=== PATIENT | female | born 1945 | race Caucasian/White ===

== ENCOUNTER 2017-11-04 13:40 | Emergency (ER) | payer MEDICARE, OTHER ==
[~2017-11-04] VITALS: Ht 167.6 cm; Wt 54.4 kg
[2017-11-04] MEDS ORDERED: VALIUM (13:49)
[2017-11-04 16:48] LABS: BASOPHILS % (AUTO) 0.5 % (0.0-2.0); EOSINOPHILS % (AUTO) 0.1 % (0.0-7.0); HEMATOCRIT 41.1 % (31.2-41.9); HEMOGLOBIN 14.4 g/dL (10.9-14.3); LYMPHOCYTES # (AUTO) 1.9 K/uL (20.0-40.0); LYMPHOCYTES % (AUTO) 20.1 % (20.5-51.5); MEAN CORPUSCULAR HEMOGLOBIN 30.9 uug (24.7-32.8); MEAN CORPUSCULAR HGB CONC 35 g/dL (32.3-35.6); MEAN CORPUSCULAR VOLUME 88.5 fL (75.5-95.3); MONOCYTES # (AUTO) 0.5 K/uL (2.0-10.0); MONOCYTES % (AUTO) 5.6 % (0.0-11.0); NEUTROPHILS # (AUTO) 7.1 K/uL (1.8-8.9); NEUTROPHILS % (AUTO) 73.7 % (38.5-71.5); PLATELET COUNT (AUTO) 252 K/uL (179-408); RED BLOOD CELL COUNT(AUTO) 4.64 MIL/uL (3.63-4.92); WHITE BLOOD COUNT (AUTO) 9.6 K/uL (3.8-11.8)
[2017-11-04 16:54] LABS: CARBON DIOXIDE 28 mmol/L (21-32); CHLORIDE 105 mmol/L (98-107); CREATININE 0.8 mg/dL (0.6-1.3); GLUCOSE 102 mg/dL (74-106); POTASSIUM 4.6 mmol/L (3.5-5.1); UREA NITROGEN, BLOOD 9 mg/dL (7-18)
[2017-11-04 17:04] LABS: ALANINE AMINOTRANSFERASE 26 U/L (14-59); ALKALINE PHOSPHATASE 71 U/L (50-136); ASPARTATE AMINOTRANSFERASE 22 U/L (15-37); BILIRUBIN,DIRECT 0.1 mg/dL (0.0-0.2); BILIRUBIN,TOTAL 0.3 mg/dL (0.2-1.0); TOTAL PROTEIN, SERUM 7.1 g/dL (6.4-8.2)
--- NOTE | 2017-11-04 17:18 | NUR ---
pt is resting in bed, watching tv. no acute distress noted.
[2017-11-04 17:24] LABS: THYROID STIMULATING HORMONE 1.916 mIU/mL (0.358-3.740)
[2017-11-04 17:36] VITALS: BP 150/60
--- NOTE | 2017-11-04 17:36 | NUR ---
Patient discharged to home in stable conditon. Written and verbal after care instructions given. Patient verbalizes understanding of instructions.
== END 2017-11-04 17:44 | disposition home or self-care (01) ==
LOC: ER 13:40
DX: F41.9 Anxiety disorder, unspecified (principal)
CPT/HCPCS: 36415; 70450; 71010; 80048; 80076; 84439; 84443; 84479; 84484; 85025; 85730; 93005; 99285; A4663; 70030-TC

== ENCOUNTER 2018-01-23 10:57 | Emergency (ER) | payer MEDICARE, OTHER ==
[~2018-01-23] VITALS: Ht 160 cm; Wt 65.8 kg
[~2018-01-23 10:57] MED LIST: VALIUM
[2018-01-23] MEDS ORDERED: LEVO500T2 PO (11:12)
[2018-01-23] MEDS ORDERED: GUAI5LIQ PO (11:12)
[2018-01-23] MEDS ORDERED: ALPR0.25 PO (11:12)
[2018-01-23 11:40] LABS: HEMATOCRIT 42.1 % (31.2-41.9); HEMOGLOBIN 14.6 g/dL (10.9-14.3); MEAN CORPUSCULAR HEMOGLOBIN 29.8 uug (24.7-32.8); WHITE BLOOD COUNT (AUTO) 8.9 K/uL (3.8-11.8)
[2018-01-23 11:41] LABS: BASOPHILS % (AUTO) 0.3 % (0.0-2.0); EOSINOPHILS % (AUTO) 0.1 % (0.0-7.0); LYMPHOCYTES # (AUTO) 1.5 K/uL (20.0-40.0); LYMPHOCYTES % (AUTO) 16.9 % (20.5-51.5); MEAN CORPUSCULAR HGB CONC 35 g/dL (32.3-35.6); MONOCYTES # (AUTO) 0.8 K/uL (2.0-10.0); MONOCYTES % (AUTO) 8.6 % (0.0-11.0); NEUTROPHILS # (AUTO) 6.6 K/uL (1.8-8.9); NEUTROPHILS % (AUTO) 74.1 % (38.5-71.5); PLATELET COUNT (AUTO) 304 K/uL (179-408)
[2018-01-23 11:51] LABS: CARBON DIOXIDE 26 mmol/L (21-32); CHLORIDE 97 mmol/L (98-107); CREATININE 0.8 mg/dL (0.6-1.3); GLUCOSE 145 mg/dL (74-106); POTASSIUM 4.2 mmol/L (3.5-5.1); UREA NITROGEN, BLOOD 8 mg/dL (7-18)
[2018-01-23 11:56] LABS: ALANINE AMINOTRANSFERASE 29 U/L (14-59); ALKALINE PHOSPHATASE 62 U/L (50-136); ASPARTATE AMINOTRANSFERASE 16 U/L (15-37); BILIRUBIN,TOTAL 0.4 mg/dL (0.2-1.0); TOTAL PROTEIN, SERUM 7.1 g/dL (6.4-8.2)
[2018-01-23] MEDS ORDERED: ALPRAZOLAM 0.25 MG TABLET PO ONE (12:15)
[2018-01-23] MEDS ORDERED: ALPRAZOLAM 0.5 MG TABLET ONE (12:19)
--- NOTE | 2018-01-23 12:22 | NUR ---
Patient discharged to home in stable conditon with family. Written and verbal after care instructions given. Patient verbalizes understanding of instructions.
== END 2018-01-23 12:23 | disposition home or self-care (01) ==
LOC: ER 10:59
DX: F41.9 Anxiety disorder, unspecified (principal); Z79.2 Long term (current) use of antibiotics; Z79.899 Other long term (current) drug therapy
CPT/HCPCS: 36415; 71045; 85025; A4663

== ENCOUNTER 2020-06-20 10:25 | Inpatient (IN) | payer MEDICARE, OTHER ==
[~2020-06-20] VITALS: Ht 167.6 cm; Wt 64.0 kg
[~2020-06-20 10:25] MED LIST changes: +ALPR0.25 PO; +GUAI5LIQ PO; +LEVO500T2 PO
[2020-06-20 10:52] LABS: BASOPHILS % (AUTO) 0.1 % (0.0-2.0); HEMOGLOBIN 11.4 g/dL (10.9-14.3); LYMPHOCYTES # (AUTO) 1.3 K/uL (20.0-40.0); LYMPHOCYTES % (AUTO) 10.6 % (20.5-51.5); MEAN CORPUSCULAR HEMOGLOBIN 29.6 uug (24.7-32.8); MEAN CORPUSCULAR HGB CONC 36 g/dL (32.3-35.6); MEAN CORPUSCULAR VOLUME 82.8 fL (75.5-95.3); MONOCYTES # (AUTO) 0.9 K/uL (2.0-10.0); MONOCYTES % (AUTO) 7.4 % (0.0-11.0); NEUTROPHILS # (AUTO) 10.4 K/uL (1.8-8.9); NEUTROPHILS % (AUTO) 81.9 % (38.5-71.5); PLATELET COUNT (AUTO) 224 K/uL (179-408); RED BLOOD CELL COUNT(AUTO) 3.86 MIL/uL (3.63-4.92); WHITE BLOOD COUNT (AUTO) 12.7 K/uL (3.8-11.8)
--- NOTE | 2020-06-20 10:52 | NUR ---
Pt out of ER for CT.
--- NOTE | 2020-06-20 11:01 | NUR ---
Pt back from Ct, states no longer nauseous. Able to tolorate PO intake.
[2020-06-20 11:03] LABS: CREATININE 0.6 mg/dL (0.6-1.3); POTASSIUM 3.7 mmol/L (3.5-5.1)
[2020-06-20] MEDS ORDERED: IV NORMAL SALINE 1000 ML BAG IV ONE (11:15)
[2020-06-20] MEDS ORDERED: OMEP40CA13 PO (11:19)
[2020-06-20] MEDS ORDERED: SERT50TA PO (11:19)
[2020-06-20] MEDS ORDERED: SUMA100T16 PO (11:19)
--- NOTE | 2020-06-20 11:23 | NUR ---
Paged [facility] for admission.
[2020-06-20] MEDS ORDERED: IV NS 1000 ML 1,000 ML IV PRN ×2 (11:35→17:45)
[2020-06-20] MEDS ORDERED: ONDANSETRON 4 MG/2 ML VIAL IV PRN (11:45)
[2020-06-20] MEDS ORDERED: MAGNESIUM HYDROXIDE 30 ML LIQUID UDC PO PRN (11:45)
[2020-06-20] MEDS ORDERED: Z GUARD REMEDY PASTE 57 GM TUBE TOP PRN (11:45)
--- NOTE | 2020-06-20 12:30 | NUR ---
Pt arrived in RM [address] via wheelchair, AOx3, on RA with no SOB or distress at this time. Have to repeat instructions and commands multiple times. On Tele SR,denied chest pain. Notice tremors/ shakiness and asked pt the onset and cause and she stated she's not sure and it started 2 weeks ago probably. Pt seemed anxious. Ambulates to the bathroom but had to repeatedly reorient to use call light. Bed alarm on. Reoriented to room and unit policy, verbalized understanding, reinforcement needed. Bed locked in lowest position with siderails 2x up. call light and phone with reach. Will monitor
[2020-06-20 13:00] VITALS: BP 124/46
[2020-06-20 16:00] VITALS: BP 130/45
[2020-06-20] MEDS: ACETAMINOPHEN 325 MG TABLET PO PRN (16:07)
[2020-06-20 17:00] LABS: CREATININE 0.8 mg/dL (0.6-1.3); POTASSIUM 3.7 mmol/L (3.5-5.1)
[2020-06-20] MEDS ORDERED: FUROSEMIDE 40 MG/4 ML VIAL IV ONE (18:30)
[2020-06-20 20:16] VITALS: BP 122/71
[2020-06-20] MEDS ORDERED: LORAZEPAM 2 MG/1 ML VIAL IV ONE (20:45)
--- NOTE | 2020-06-20 21:28 | NUR ---
john lu np contacted for patients ripping out her IV, getting of of bed, arguing with staff, walking up and down the halls, and anxious. new orders for Ativan 1mg x1 IVP to administer now.
[2020-06-20] MEDS ORDERED: IV SODIUM CHLORIDE 3% 500 ML IV PRN (22:00)
[2020-06-20 22:22] LABS: BASOPHILS % (AUTO) 0.1 % (0.0-2.0); HEMOGLOBIN 10.9 g/dL (10.9-14.3); LYMPHOCYTES # (AUTO) 1.4 K/uL (20.0-40.0); LYMPHOCYTES % (AUTO) 10.4 % (20.5-51.5); MEAN CORPUSCULAR HEMOGLOBIN 29.2 uug (24.7-32.8); MEAN CORPUSCULAR HGB CONC 35 g/dL (32.3-35.6); MEAN CORPUSCULAR VOLUME 82.9 fL (75.5-95.3); MONOCYTES # (AUTO) 1.3 K/uL (2.0-10.0); MONOCYTES % (AUTO) 10.2 % (0.0-11.0); NEUTROPHILS # (AUTO) 10.4 K/uL (1.8-8.9); NEUTROPHILS % (AUTO) 79.3 % (38.5-71.5); PLATELET COUNT (AUTO) 184 K/uL (179-408); RED BLOOD CELL COUNT(AUTO) 3.73 MIL/uL (3.63-4.92); WHITE BLOOD COUNT (AUTO) 13.2 K/uL (3.8-11.8)
[2020-06-20 22:24] LABS: CREATININE 0.8 mg/dL (0.6-1.3)
--- NOTE | 2020-06-20 22:25 | NUR ---
Received patient from 3rd floor telemetry. Was brought in earlier to the ER by rescue ambulance for complaints of worsening frontal headache. Was found to have hyponatremia and leukocytosis, admitted up to the 3rd floor telemetry. While up there, the patient apparently became delusional and became slightly bradycardic at 58, however patient's current alert level consistent with their admission assessment. Patient is otherwise hemodynamically stable. Orders to begin 3% hypertonic saline infusion @30mL/Hr.
[2020-06-20 22:30] VITALS: BP 122/41
[2020-06-20] MEDS ORDERED: CEFTRIAXONE 1 G VIAL IM SCH (22:30)
--- NOTE | 2020-06-20 22:38 | NUR ---
patient transferred to CCU, report given to Brandon. patient in bed 4. IVP intact and patent. orders given from john lu np for BMP and CBC stat. urinalysis collected and will be sent to lab. sinus bradycardia on tele monitor at 52bpm. x1 episode of n/v. zofran administered. v/s stable. no s/s of acute distress. on RA.
[2020-06-20] MEDS ORDERED: CEFTRIAXONE 1 G VIAL ONE (22:48)
[2020-06-20 23:00] VITALS: BP 132/43
[2020-06-20] MEDS ORDERED: IV SODIUM CHLORIDE 3% 500 ML IV ONE (23:15)
[2020-06-20] MEDS: CEFTRIAXONE 1 G in IV DEXTROSE 5% 50 ML IV SCH (23:21)
[2020-06-21] VITALS (24 sets, daily range): BP systolic 52–155; BP diastolic 21–92
--- NOTE | 2020-06-21 | NUR ---
Patient is very non-compliant with instructions, frequently attempting to get out of bed. Patient required extensive reorientation to where she is and to use call light.
[2020-06-21 02:21] LABS: CREATININE 0.8 mg/dL (0.6-1.3); POTASSIUM 2.9 mmol/L (3.5-5.1)
--- NOTE | 2020-06-21 02:40 | NUR ---
Sodium remains critical @114 up from 113. Spoke with Ajit Palma NP to inform him of minimal change to the patient's sodium level. He ordered the 3% saline infusion be increased to 50mL/Hr. Order carried out.
[2020-06-21 06:16] LABS: EOSINOPHILS % (AUTO) 0.1 % (0.0-7.0); HEMATOCRIT 31.3 % (31.2-41.9); HEMOGLOBIN 11.3 g/dL (10.9-14.3); LYMPHOCYTES # (AUTO) 1.3 K/uL (20.0-40.0); LYMPHOCYTES % (AUTO) 12.9 % (20.5-51.5); MEAN CORPUSCULAR HGB CONC 36 g/dL (32.3-35.6); MEAN CORPUSCULAR VOLUME 82.6 fL (75.5-95.3); MONOCYTES # (AUTO) 1.1 K/uL (2.0-10.0); MONOCYTES % (AUTO) 10.4 % (0.0-11.0); NEUTROPHILS % (AUTO) 76.6 % (38.5-71.5); PLATELET COUNT (AUTO) 187 K/uL (179-408); RED BLOOD CELL COUNT(AUTO) 3.78 MIL/uL (3.63-4.92); WHITE BLOOD COUNT (AUTO) 10.4 K/uL (3.8-11.8)
--- NOTE | 2020-06-21 06:30 | NUR ---
PT. IV PULLED OUT, RESTARTED IV ON LFA W/ # 20 GAUGE.
[2020-06-21 06:35] LABS: BILIRUBIN,TOTAL 0.6 mg/dL (0.2-1.0); CREATININE 0.7 mg/dL (0.6-1.3); MAGNESIUM 1.7 mg/dL (1.8-2.4); PHOSPHOROUS 2.8 mg/dL (2.5-4.9); TOTAL PROTEIN, SERUM 5.6 g/dL (6.4-8.2)
[2020-06-21 06:45] LABS: POTASSIUM 2.8 mmol/L (3.5-5.1)
[2020-06-21] MEDS ORDERED: POTASSIUM CHLORIDE 20 MEQ POWDER PACKET PO ONE (07:30)
--- NOTE | 2020-06-21 07:35 | NUR ---
Dr. Robert here to see pt. New orders received.
[2020-06-21] MEDS: SERTRALINE HCL 50 MG TABLET PO SCH (08:09)
[2020-06-21] MEDS: PANTOPRAZOLE SODIUM 40 MG TABLET.DR PO SCH (08:09)
[2020-06-21] MEDS: MAGNESIUM SULFATE/D5W 100 ML IV SCH ×2 (08:10→09:12)
[2020-06-21] MEDS ORDERED: FUROSEMIDE 20 MG TABLET PO SCH (09:00)
[2020-06-21 09:28] LABS: THYROID STIMULATING HORMONE 1.807 mIU/mL (0.358-3.740)
[2020-06-21] MEDS: POTASSIUM CHLORIDE 50 ML IV SCH ×4 (10:11→14:18)
--- NOTE | 2020-06-21 11:44 | NUR ---
US tech here to see pt for 2D Echocardiogram.
[2020-06-21 16:29] LABS: *BILIRUBIN,URIN NEGATIVE (NEGATIVE); *KETONES,URINE NEGATIVE (NEGATIVE); *UROBILINOGEN,URINE 0.2 E.U./dl (NORMAL); LEUKOCYTE ESTERASE ,URINE 1+ (NEGATIVE); NITRITE, URINE NEGATIVE (NEGATIVE); UGLUCOSE NEGATIVE (NEGATIVE)
[2020-06-21 16:36] LABS: *BLOOD, URINE TRACE (NEGATIVE); *CLARITY,URINE HAZY (CLEAR); *COLOR,URINE LIGHT YELLOW (YELLOW)
[2020-06-21 18:48] LABS: BACTERIA,URINE MODERATE /HPF (NONE SEEN); RBC,URINE 0-3 /HPF (0-3); SQUAMOUS EPITHELIAL CELL,UR FEW /HPF (NONE SEEN)
--- NOTE | 2020-06-21 19:10 | NUR ---
Received patient sleeping in bed. Patient's vital signs all WNL, no signs of distress noted.
[2020-06-21] MEDS: CEFTRIAXONE 1 G in IV DEXTROSE 5% 50 ML IV SCH (23:09)
[2020-06-22] VITALS (15 sets, daily range): BP systolic 85–148; BP diastolic 27–110
[2020-06-22 05:24] LABS: CREATININE 0.7 mg/dL (0.6-1.3); MAGNESIUM 2.2 mg/dL (1.8-2.4); URIC ACID 1.7 mg/dL (2.6-6.0)
[2020-06-22 05:32] LABS: THYROID STIMULATING HORMONE 1.167 mIU/mL (0.358-3.740)
[2020-06-22] MEDS: PANTOPRAZOLE SODIUM 40 MG TABLET.DR PO SCH (06:50)
[2020-06-22] MEDS ORDERED: POTASSIUM CHLORIDE 20 MEQ TAB.PRT.SR PO ONE (07:30)
[2020-06-22] MEDS: SERTRALINE HCL 50 MG TABLET PO SCH ×2 (08:01→08:05)
[2020-06-22] MEDS: LIDOCAINE 5% PATCH TD SCH (08:34)
[2020-06-22] MEDS ORDERED: MAGNESIUM HYDROXIDE 30 ML LIQUID UDC PO PRN (09:00)
[2020-06-22] MEDS ORDERED: POTASSIUM PHOSPHATE MM 7.5 MMOL in IV NORMAL SALINE 97.5 ML IV ONE (09:00)
[2020-06-22] MEDS: DOCUSATE SODIUM 100 MG CAPSULE PO SCH ×3 (09:43→20:25)
--- NOTE | 2020-06-22 10:44 | NUR ---
Full telephone SBAR report given to PREETI Moffett.
--- NOTE | 2020-06-22 11:12 | NUR ---
received report from nikkie ÁLVAREZ, Patient will be transfer to room 302.
--- NOTE | 2020-06-22 11:12 | NUR ---
Pt left the floor with RN via wheelchair and transferred to [facility]. Pt stable and nad noted upon leaving the unit.
[2020-06-22] MEDS ORDERED: PIPERACILLIN SODIUM/TAZOBACTAM 3.375 G in IV DEXTROSE 5% 50 ML IV SCH (12:00)
[2020-06-22] MEDS: PIPERACILLIN SODIUM/TAZOBACTAM 3.375 G in IV DEXTROSE 5% 50 ML IV SCH ×2 (12:45→17:32)
[2020-06-22] MEDS: ACETAMINOPHEN 325 MG TABLET PO PRN (13:43)
--- NOTE | 2020-06-22 17:54 | NUR ---
Patient awake, alert and verbally responsive. No signs of distress noted. No SOB. Tylenol 650mg given for headache. All needs attended and met. Placed the call light within easy reach. kept clean and comfortable. Will endorse to Oncoming Nurse.
--- NOTE | 2020-06-22 20:00 | NUR ---
Patient received into care, laying in bed, resting. Patient is alert/oriented x3 and verbally responsive. Patient has no complaints of pain but states the bed is uncomfortable and she is unable to sleep. This nurse apologized for the discomfort patient is experiencing and offered to provide her with prescribed sleeping medication, but patient refused. All safety and fall precaution measures are in place. Call light and personal items are within reach at all times. Will continue to monitor and assess.
[2020-06-22] MEDS: ATORVASTATIN 10 MG TABLET PO SCH ×2 (20:22→20:26)
--- NOTE | 2020-06-22 20:26 | NUR ---
Patient refused 2100h prescribed po Colace and Lipitor. This nurse explained the risks/benefits three times, patient still refused.
[2020-06-23] MEDS: PIPERACILLIN SODIUM/TAZOBACTAM 3.375 G in IV DEXTROSE 5% 50 ML IV SCH ×2 (00:18→06:14)
[2020-06-23 00:33] VITALS: BP 138/80
--- NOTE | 2020-06-23 05:00 | NUR ---
Patient slept intermittently throughout night with no complaints of pain verbalized to this nurse. Patient refused 2100h prescribed medications but patient did accept prescribed IV antibiotics. All nursing needs were met promptly, patient's bed was made as comfortable as possible to address patient's complaint that bed was making it difficult for her to sleep, and patient is warm and dry. All safety and fall precaution measures remain in place. Call light and personal items remain within reach.
[2020-06-23 05:22] VITALS: BP 147/51
[2020-06-23 05:53] LABS: BASOPHILS % (AUTO) 0.1 % (0.0-2.0); EOSINOPHILS # (AUTO) 0.1 K/uL (0.0-0.7); EOSINOPHILS % (AUTO) 0.5 % (0.0-7.0); HEMATOCRIT 31.6 % (31.2-41.9); HEMOGLOBIN 10.8 g/dL (10.9-14.3); LYMPHOCYTES # (AUTO) 1.4 K/uL (20.0-40.0); LYMPHOCYTES % (AUTO) 12.5 % (20.5-51.5); MEAN CORPUSCULAR HEMOGLOBIN 29.4 uug (24.7-32.8); MEAN CORPUSCULAR HGB CONC 34 g/dL (32.3-35.6); MEAN CORPUSCULAR VOLUME 85.6 fL (75.5-95.3); MONOCYTES # (AUTO) 0.8 K/uL (2.0-10.0); MONOCYTES % (AUTO) 7.1 % (0.0-11.0); NEUTROPHILS % (AUTO) 79.8 % (38.5-71.5); PLATELET COUNT (AUTO) 167 K/uL (179-408); RED BLOOD CELL COUNT(AUTO) 3.69 MIL/uL (3.63-4.92); WHITE BLOOD COUNT (AUTO) 11.2 K/uL (3.8-11.8)
[2020-06-23] MEDS: PANTOPRAZOLE SODIUM 40 MG TABLET.DR PO SCH (06:21)
[2020-06-23 06:39] LABS: BILIRUBIN,TOTAL 0.8 mg/dL (0.2-1.0); CREATININE 0.8 mg/dL (0.6-1.3); MAGNESIUM 2.4 mg/dL (1.8-2.4); PHOSPHOROUS 2.1 mg/dL (2.5-4.9); POTASSIUM 3.4 mmol/L (3.5-5.1); TOTAL PROTEIN, SERUM 5.7 g/dL (6.4-8.2)
--- NOTE | 2020-06-23 07:30 | NUR ---
Received patient resting comfortably in bed. No sign of respiratory distress noted, patient is saturating well on room air. Patient denies any pain at this time. IV in right forearm 20 gauge hep lock. Patient is awake alert and oriented. Safety precautions in place, bed in lowest position and locked with patient belongings and call light within reach. Will continue to monitor.
[2020-06-23] MEDS: LIDOCAINE 5% PATCH TD SCH (08:13)
[2020-06-23] MEDS: SERTRALINE HCL 50 MG TABLET PO SCH (08:13)
[2020-06-23] MEDS: DOCUSATE SODIUM 100 MG CAPSULE PO SCH ×2 (08:13→20:33)
[2020-06-23] MEDS ORDERED: NEUTRA PHOS PACKET PO ONE (11:00)
[2020-06-23] MEDS ORDERED: POTASSIUM CHLORIDE 20 MEQ TAB.PRT.SR PO ONE (11:00)
[2020-06-23 11:30] VITALS: BP 149/84
[2020-06-23] MEDS: PIPERACILLIN/TAZOBACTAM/D5W 3.375 G in IV DEXTROSE 5% 100 ML IV SCH ×2 (14:48→21:03)
--- NOTE | 2020-06-23 14:56 | NUR ---
Patient taken down to have CT of lumbar spine without contrast. Will restart IV antibiotics when she gets back on the floor.
[2020-06-23 16:00] VITALS: BP 125/72
[2020-06-23] MEDS: ACETAMINOPHEN 325 MG TABLET PO PRN (17:41)
--- NOTE | 2020-06-23 18:23 | NUR ---
Patient is now resting in bed. No sign of distress noted. Patient reported a headache and pain medication was given as ordered. A;; safety measures are in place, bed in the lowest position and locked with call light and belongings within reach. Will endorse to oncoming nurse.
--- NOTE | 2020-06-23 19:00 | NUR ---
Received pt in bed, resting. Pt is awake and denies any acute distress or pain at this time. Pt denies any headache. Pt was assisted to the bathroom. V/S stable, on room air. RFA IV is intact and patent with Zosyn currently running. Safety measures in place. Bed low and locked in position. Personal belongings and call light within reach. Will continue with the plan of care.
[2020-06-23 19:59] VITALS: BP 130/57
[2020-06-23] MEDS: ATORVASTATIN 10 MG TABLET PO SCH (20:32)
[2020-06-24 00:32] VITALS: BP 145/54
--- NOTE | 2020-06-24 04:39 | NUR ---
Patient BP elevated made Dr Saenz and Dr Soliz aware. BP 188/73 hr 69 with repeat BP 182/71 with hr 70. Waiting and MD order. Will continue to monitor.
[2020-06-24] MEDS: PIPERACILLIN/TAZOBACTAM/D5W 3.375 G in IV DEXTROSE 5% 100 ML IV SCH ×3 (05:03→21:22)
[2020-06-24 05:51] LABS: BASOPHILS % (AUTO) 0.2 % (0.0-2.0); EOSINOPHILS # (AUTO) 0.1 K/uL (0.0-0.7); HEMATOCRIT 31.3 % (31.2-41.9); HEMOGLOBIN 10.9 g/dL (10.9-14.3); LYMPHOCYTES # (AUTO) 1.4 K/uL (20.0-40.0); LYMPHOCYTES % (AUTO) 14.9 % (20.5-51.5); MEAN CORPUSCULAR HEMOGLOBIN 29.6 uug (24.7-32.8); MEAN CORPUSCULAR HGB CONC 35 g/dL (32.3-35.6); MEAN CORPUSCULAR VOLUME 85.3 fL (75.5-95.3); MONOCYTES % (AUTO) 10.4 % (0.0-11.0); NEUTROPHILS # (AUTO) 7.1 K/uL (1.8-8.9); NEUTROPHILS % (AUTO) 73.5 % (38.5-71.5); PLATELET COUNT (AUTO) 171 K/uL (179-408); RED BLOOD CELL COUNT(AUTO) 3.67 MIL/uL (3.63-4.92); WHITE BLOOD COUNT (AUTO) 9.7 K/uL (3.8-11.8)
[2020-06-24 06:07] VITALS: BP 156/68
[2020-06-24 06:13] LABS: BILIRUBIN,TOTAL 0.7 mg/dL (0.2-1.0); CREATININE 0.7 mg/dL (0.6-1.3); MAGNESIUM 2.3 mg/dL (1.8-2.4); PHOSPHOROUS 2.9 mg/dL (2.5-4.9); POTASSIUM 3.2 mmol/L (3.5-5.1); TOTAL PROTEIN, SERUM 5.4 g/dL (6.4-8.2)
--- NOTE | 2020-06-24 06:15 | NUR ---
Pt's BP is 156/68 per [employer], rechecked and went up to 162/70. Pt is asymptomatic. Dr. Soliz is aware. Will carry out the order. Will continue to monitor patient.
[2020-06-24] MEDS: PANTOPRAZOLE SODIUM 40 MG TABLET.DR PO SCH (06:20)
[2020-06-24] MEDS: HYDROCODONE/APAP 5-325MG TABLET PO PRN ×2 (06:34→13:36)
--- NOTE | 2020-06-24 06:38 | NUR ---
Pt slept intermittently throughout the night. Pt is awake and complains of 8/10 headache. Pt was given Norcox1. Pt is NSR 64 on tele monitor. Comfort care and needs attended. Fall precaution maintained. Call lights within reach. Will endorse to the oncoming nurse accordingly.
[2020-06-24] MEDS ORDERED: POTASSIUM CHLORIDE 20 MEQ TAB.PRT.SR PO ONE (07:30)
--- NOTE | 2020-06-24 08:00 | NUR ---
Patient's potassium is low, lab value is currently a 3.2, will give supplemental potassium as ordered.
[2020-06-24] MEDS: DOCUSATE SODIUM 100 MG CAPSULE PO SCH ×2 (08:09→20:30)
[2020-06-24] MEDS: SERTRALINE HCL 50 MG TABLET PO SCH (08:09)
[2020-06-24] MEDS: LISINOPRIL 5 MG TABLET PO SCH (08:19)
[2020-06-24] MEDS: LIDOCAINE 5% PATCH TD SCH (08:19)
--- NOTE | 2020-06-24 09:32 | NUR ---
Received patient resting comfortably in bed. No sign of respiratory distress noted, patient is saturating well on room air. Patient denies any pain at this time. Patient complains of headache but already received [place]. Gave blood pressure medication due to report given by night nurse that patient BP was elevated. IV in right forearm 20 gauge hep lock. Patient is awake alert and oriented. Safety precautions in place, bed in lowest position and locked with patient belongings and call light within reach. Will continue to monitor.
[2020-06-24] MEDS ORDERED: FUROSEMIDE 20 MG TABLET PO SCH (11:30)
[2020-06-24 12:00] VITALS: BP 161/64
[2020-06-24] MEDS ORDERED: POTA10CA43 PO (14:13)
[2020-06-24] MEDS ORDERED: DOCU100C36 PO (14:13)
[2020-06-24] MEDS ORDERED: LISI-607 PO (14:13)
[2020-06-24] MEDS ORDERED: HYDR-3972 PO (14:13)
[2020-06-24] MEDS ORDERED: FURO20TA4 PO (14:13)
[2020-06-24] MEDS ORDERED: CALC-555 PO (14:13)
[2020-06-24] MEDS ORDERED: MAGN400O6 PO (14:13)
[2020-06-24] MEDS ORDERED: ACET325T53 PO (14:13)
[2020-06-24] MEDS ORDERED: ATOR10TA PO (14:13)
[2020-06-24] MEDS ORDERED: PANT40TA2 PO (14:13)
[2020-06-24] MEDS ORDERED: LIDO30AD10 TD (14:13)
--- NOTE | 2020-06-24 15:30 | NUR ---
Processed discharge to ARU as per Dr Saenz's discharge orders. Upon trying to get the DC orders signed the patient says she does not want to go to rehab. I notified MD and he says to process discharge and that there are no new orders from him. Will start on discharging patient to home.
[2020-06-24 16:00] VITALS: BP 182/71
--- NOTE | 2020-06-24 16:30 | NUR ---
Asked patient if she would like to continue physical therapy at home and patient refused. Will Made MD aware.
--- NOTE | 2020-06-24 17:12 | NUR ---
MD response is to ask the family "if they want to picker and sorter load and unload patient today or tomorrow" Call family and made the aware, they insist on taking her today.
[2020-06-24] MEDS ORDERED: LISINOPRIL 5 MG TABLET PO ONE (18:00)
--- NOTE | 2020-06-24 18:00 | NUR ---
Got order for Lisonopril 5mg PO once ffro Dr Soliz (meringuer).
--- NOTE | 2020-06-24 18:22 | NUR ---
Patient decided not to go home today. Dr Saenz and Dr Soliz receiver dispatcher both made aware.
--- NOTE | 2020-06-24 18:34 | NUR ---
DC telemetry, took monitor off and gave to front desk monitor.
--- NOTE | 2020-06-24 18:44 | NUR ---
Patient is now resting in bed. No sign of distress noted. Patient blood pressure was elevated and BP medications was given as ordered. Safety measures are in place, bed in the lowest position and locked with call light and belongings within reach. Will endorse to oncoming nurse.
--- NOTE | 2020-06-24 19:45 | NUR ---
Received patient awake and alert. Patient shows no signs or symptoms of distress at this time. Vital signs stable. Blood pressure now 144/56. Headache improved. Patient reports that she wants to go home and does not want to stay in the hospital any longer. Bed set to lowest position. Call light within reach. Side rails x2 are up. Will continue to monitor patient.
[2020-06-24 20:00] VITALS: BP 144/56
[2020-06-24] MEDS: ATORVASTATIN 10 MG TABLET PO SCH (20:27)
--- NOTE | 2020-06-24 21:50 | NUR ---
IV to right forearm now red and as per pt, is a little painful. New 22g inserted to right hand. Will continue to monitor patient.
[2020-06-25 05:56] VITALS: BP 166/62
[2020-06-25] MEDS: ACETAMINOPHEN 325 MG TABLET PO PRN ×2 (06:00→12:01)
[2020-06-25] MEDS: PANTOPRAZOLE SODIUM 40 MG TABLET.DR PO SCH (06:00)
[2020-06-25] MEDS: PIPERACILLIN/TAZOBACTAM/D5W 3.375 G in IV DEXTROSE 5% 100 ML IV SCH (06:00)
--- NOTE | 2020-06-25 06:16 | NUR ---
Patient shows no signs or symptoms of distress at this time. Blood pressure elevated at this time 166/62. Patient c/o having headache. PRN tylenol given as per MD order. Will continue to monitor patient.
[2020-06-25] MEDS: DOCUSATE SODIUM 100 MG CAPSULE PO SCH (08:30)
[2020-06-25] MEDS: LIDOCAINE 5% PATCH TD SCH (08:30)
[2020-06-25] MEDS: LISINOPRIL 5 MG TABLET PO SCH (08:30)
[2020-06-25] MEDS: HYDROCODONE/APAP 5-325MG TABLET PO PRN (08:37)
[2020-06-25] MEDS: SERTRALINE HCL 50 MG TABLET PO SCH (08:37)
[2020-06-25] MEDS ORDERED: POTASSIUM CHLORIDE 10 MEQ TAB.PRT.SR PO SCH (09:00)
[2020-06-25] MEDS ORDERED: LISINOPRIL 5 MG TABLET PO ONE (10:37)
[2020-06-25] MEDS ORDERED: ATOR10TA PO (10:43)
[2020-06-25] MEDS ORDERED: HYDR-3972 PO (10:43)
[2020-06-25] MEDS ORDERED: POTA10CA43 PO (10:43)
[2020-06-25] MEDS ORDERED: LISI10TA5 PO (10:43)
[2020-06-25] MEDS ORDERED: FURO20TA4 PO (10:43)
[2020-06-25] MEDS ORDERED: DOCU100C36 PO (10:43)
--- NOTE | 2020-06-25 11:00 | NUR ---
SPOKE WITH SONS AND CAREGIVER. DR. GIORDANO AT BEDSIDE. PREPARING FOR DISCHARGE.
--- NOTE | 2020-06-25 11:30 | NUR ---
IV DC'D. ANGIOCATH REMOVED INTACT. INSTRUCTED TO STOP GETTING DRESSED FOR 10 MINS. PRESSURE DRESSING APPLIED TO IV SITE.
[2020-06-25 11:55] VITALS: BP 137/80
--- NOTE | 2020-06-25 12:00 | NUR ---
HEMATOMA NOTED AT IV SITE. NEW PRESSURE DRESSING APPLIED. TYLENOL 650MG FOR C/O H/A WITH GOOD EFFECT AFTER 20 MINS. PREPARED FOR DISCHARGE.
--- NOTE | 2020-06-25 12:40 | NUR ---
DISCHARGED VIA W/C, ACCOMPANIED BY NURSE TO CAREGIVER IN AUTO. NO C/O DISCOMFORT.
[2020-06-25] MEDS ORDERED: LISINOPRIL 10 MG TABLET PO SCH (17:00)
[2020-06-26] MEDS ORDERED: LISINOPRIL 10 MG TABLET PO SCH (09:00)
== END 2020-06-25 12:20 | disposition home health service (06) | DRG 871 ==
LOC: ER 10:25 → TELE3 12:14 → CCU 22:20 → TELE3 06-22 11:15 → MEDSURG3 06-24 18:00
PROVIDERS: ADMIT Nurse Practitioner Acute Care; ATTEND Internal Medicine
DX: A41.9 Sepsis, unspecified organism (principal); J69.0 Pneumonitis due to inhalation of food and vomit; G92 Toxic encephalopathy; I50.31 Acute diastolic (congestive) heart failure; N39.0 Urinary tract infection, site not specified; E22.2 Syndrome of inappropriate secretion of antidiuretic hormone; G43.909 Migraine, unspecified, not intractable, without status migrainosus; E78.5 Hyperlipidemia, unspecified; E87.6 Hypokalemia; F32.9 Major depressive disorder, single episode, unspecified; F41.9 Anxiety disorder, unspecified; R73.03 Prediabetes; R00.1 Bradycardia, unspecified; D50.9 Iron deficiency anemia, unspecified; I07.1 Rheumatic tricuspid insufficiency; R19.5 Other fecal abnormalities; I45.10 Unspecified right bundle-branch block; T43.225A Adverse effect of selective serotonin reuptake inhibitors, initial encounter; Y92.009 Unspecified place in unspecified non-institutional (private) residence as the place of occurrence of the external cause; I11.0 Hypertensive heart disease with heart failure; I27.20 Pulmonary hypertension, unspecified; Z91.81 History of falling; M48.56XS Collapsed vertebra, not elsewhere classified, lumbar region, sequela of fracture
CPT/HCPCS: 36415; 70030-TC; 70450; 71045; 72131; 72170; 82378; 83550; 83605; 83735; 84100; 84300; 84443; 84550; 85025; 85730; 87086; 93005; 93307; A4663; G0378; J0696; J1940; J2060; J2405; J2543; J3475; J3480; J3490; J7030; J7040; J7050; J7060

== ENCOUNTER 2021-05-16 13:52 | Emergency (ER) | payer OTHER, MEDICAID ==
[~2021-05-16] VITALS: Ht 167.6 cm; Wt 63.5 kg
[~2021-05-16 13:52] MED LIST changes: -ALPR0.25 PO; +ATOR10TA PO; +DOCU100C36 PO; +FURO20TA4 PO; -GUAI5LIQ PO; +HYDR-3972 PO; -LEVO500T2 PO; +LISI10TA29 PO; +POTA10CA43 PO; -VALIUM
[2021-05-16 14:19] LABS: HEMATOCRIT 39.9 % (31.2-41.9); MEAN CORPUSCULAR HEMOGLOBIN 30.3 uug (24.7-32.8); MEAN CORPUSCULAR VOLUME 90.3 fL (75.5-95.3); PLATELET COUNT (AUTO) 221 K/uL (179-408)
[2021-05-16 14:34] LABS: CREATININE 0.8 mg/dL (0.6-1.3); POTASSIUM 3.7 mmol/L (3.5-5.1)
[2021-05-16] MEDS ORDERED: DIAZ5TAB4 PO (14:39)
[2021-05-16] MEDS ORDERED: SERT25TA PO (14:39)
[2021-05-16 14:42] LABS: BILIRUBIN,DIRECT 0.1 mg/dL (0.0-0.2); BILIRUBIN,TOTAL 0.4 mg/dL (0.2-1.0); TOTAL PROTEIN, SERUM 6.3 g/dL (6.4-8.2)
[2021-05-16 14:59] LABS: *BILIRUBIN,URIN NEGATIVE (NEGATIVE); *BLOOD, URINE NEGATIVE (NEGATIVE); *CLARITY,URINE CLEAR (CLEAR); *COLOR,URINE YELLOW (YELLOW); *KETONES,URINE 1+ (NEGATIVE); *UROBILINOGEN,URINE 0.2 E.U./dl (NORMAL); LEUKOCYTE ESTERASE ,URINE 1+ (NEGATIVE); NITRITE, URINE NEGATIVE (NEGATIVE); UGLUCOSE NEGATIVE (NEGATIVE)
[2021-05-16 15:06] LABS: RBC,URINE 0-3 /HPF (0-3)
[2021-05-16 15:07] LABS: BACTERIA,URINE FEW /HPF (NONE SEEN); SQUAMOUS EPITHELIAL CELL,UR MODERATE /HPF (NONE SEEN); URINE AMORPHOUS URATE FEW /HPF
[2021-05-16] MEDS ORDERED: CEFTRIAXONE 1 G in IV DEXTROSE 5% 50 ML IV ONE (15:45)
[2021-05-16] MEDS ORDERED: CEFTRIAXONE /D5W 50ML IVPB **ER PYXIS IV ONE (16:27)
[2021-05-16] MEDS ORDERED: IV NS 1000 ML 1,000 ML IV ONE (16:30)
[2021-05-16] MEDS ORDERED: METOCLOPRAMIDE HCL 10 MG/2 ML VIAL IV ONE (16:30)
[2021-05-16] MEDS ORDERED: diphenhydrAMINE 50 MG/1 ML VIAL IV ONE (16:30)
[2021-05-16] MEDS ORDERED: diphenhydrAMINE 50 MG/1 ML VIAL ONE (16:37)
[2021-05-16] MEDS ORDERED: METOCLOPRAMIDE HCL 10 MG/2 ML VIAL ONE (16:38)
--- NOTE | 2021-05-16 18:00 | NUR ---
PT AMBULATED TO BATHROOM MULTIPE TIMES WITH STEADY GAIT.
[2021-05-16] MEDS ORDERED: MECL-159 PO (18:19)
[2021-05-16] MEDS ORDERED: NITR100C11 PO (18:19)
[2021-05-16 18:27] VITALS: BP 130/71
--- NOTE | 2021-05-16 18:28 | NUR ---
Patient discharged to home in stable condition. Written and verbal after care instructions given. Patient verbalizes understanding of instructions. Stressed follow up or return to ER for worsening s/s.PT WALKS IN STEADY GAIT. PT CALLING SON TO COME AND [employer]IST THE PT.
== END 2021-05-16 18:33 | disposition home or self-care (01) ==
LOC: ER 13:52
DX: R51.9 Headache, unspecified (principal); H93.12 Tinnitus, left ear; R42 Dizziness and giddiness; Z20.822 Contact with and (suspected) exposure to COVID-19; R03.0 Elevated blood-pressure reading, without diagnosis of hypertension; F41.9 Anxiety disorder, unspecified; I45.10 Unspecified right bundle-branch block; R00.1 Bradycardia, unspecified; R82.71 Bacteriuria
CPT/HCPCS: 36415; 70450; 80048; 80076; 81001; 83605; 83880; 84484; 85025; 85651; 85730; 87086; 87426; 93005; 96365; 96375; 99285; J0696; J1200; J2765; 70030-TC; A4663; J7030

== ENCOUNTER 2023-09-19 13:15 | Emergency (ER) | payer OTHER ==
[~2023-09-19] VITALS: Ht 167.6 cm; Wt 54.9 kg
[~2023-09-19 13:15] MED LIST changes: +DIAZ5TAB4 PO; -DOCU100C36 PO; -FURO20TA4 PO; -HYDR-3972 PO; +MECL-159 PO; +NITR100C11 PO; -POTA10CA43 PO; +SERT25TA PO
[2023-09-19 14:45] LABS: BASOPHILS % (AUTO) 0.4 % (0.0-2.0); HEMATOCRIT 38.4 % (31.2-41.9); HEMOGLOBIN 13.3 g/dL (10.9-14.3); LYMPHOCYTES % (AUTO) 9.3 % (20.5-51.5); MEAN CORPUSCULAR HEMOGLOBIN 34.5 uug (24.7-32.8); MEAN CORPUSCULAR HGB CONC 35 g/dL (32.3-35.6); MONOCYTES % (AUTO) 8.9 % (0.0-11.0); NEUTROPHILS # (AUTO) 8.8 K/uL (1.8-8.9); NEUTROPHILS % (AUTO) 81.4 % (38.5-71.5); PLATELET COUNT (AUTO) 186 K/uL (179-408); RED BLOOD CELL COUNT(AUTO) 3.84 MIL/uL (3.63-4.92); WHITE BLOOD COUNT (AUTO) 10.8 K/uL (3.8-11.8)
[2023-09-19] MEDS ORDERED: LIDOCAINE 2%-EPI 1:100,000 20 ML VIAL IJ ONE (14:45)
[2023-09-19 14:49] LABS: DIFFERENTIAL COMMENT 1
[2023-09-19] MEDS ORDERED: LIDOCAINE 1%-EPI 1:100,000 20 ML VIAL ONE (14:57)
[2023-09-19 14:58] LABS: ALANINE AMINOTRANSFERASE 118 U/L (14-59); ALBUMIN 3.8 g/dL (3.4-5.0); ALKALINE PHOSPHATASE 99 U/L (50-136); ASPARTATE AMINOTRANSFERASE 78 U/L (15-37); BILIRUBIN,DIRECT 0.4 mg/dL (0.0-0.2); BILIRUBIN,TOTAL 1.2 mg/dL (0.2-1.0); CALCIUM 8.7 mg/dL (8.5-10.1); CARBON DIOXIDE 24 mmol/L (21-32); CHLORIDE 100 mmol/L (98-107); CREATININE 0.8 mg/dL (0.6-1.3); GLUCOSE 116 mg/dL (74-106); POTASSIUM 3.7 mmol/L (3.5-5.1); SODIUM SERUM 138 mmol/L (136-145); TOTAL PROTEIN, SERUM 6.7 g/dL (6.4-8.2); UREA NITROGEN, BLOOD 9 mg/dL (7-18)
[2023-09-19] MEDS ORDERED: LIDOCAINE 2%-EPI 1:100,000 20 ML VIAL ONE (14:58)
[2023-09-19] MEDS ORDERED: ACETAMINOPHEN ES 500 MG TABLET PO ONE (17:15)
[2023-09-19] MEDS ORDERED: HYDR-3980 PO (17:22)
[2023-09-19 17:40] VITALS: BP 142/81; TEMP 98.3; O2SAT 97
== END 2023-09-19 17:41 | disposition home or self-care (01) ==
LOC: ER 13:19
DX: S52.501A Unspecified fracture of the lower end of right radius, initial encounter for closed fracture (principal); S52.611A Displaced fracture of right ulna styloid process, initial encounter for closed fracture; S00.83XA Contusion of other part of head, initial encounter; R74.8 Abnormal levels of other serum enzymes; G43.909 Migraine, unspecified, not intractable, without status migrainosus; I50.9 Heart failure, unspecified; E78.5 Hyperlipidemia, unspecified; Z79.899 Other long term (current) drug therapy; W18.39XA Other fall on same level, initial encounter; Y93.89 Activity, other specified; Y92.89 Other specified places as the place of occurrence of the external cause; Y99.8 Other external cause status
CPT/HCPCS: 36415; 70450; 71045; 73100; 73120; 85025; 85730; 93005; A4606; A4663; J3490

== ENCOUNTER 2024-04-12 17:23 | Emergency (ER) | payer OTHER, MEDICAID ==
[~2024-04-12] VITALS: Ht 167.6 cm; Wt 54.4 kg
[~2024-04-12 17:23] MED LIST changes: +HYDR-3980 PO
[2024-04-12 17:36] VITALS: O2SAT 96
[2024-04-12] MEDS ORDERED: NEOMY/BACITRA/POLYMYXIN B OINT UD PACKET TP ONE (18:02)
[2024-04-12] MEDS: NEOMY/BACITRA/POLYMYXIN B OINT UD PACKET TP ONE (18:02)
[2024-04-12 18:10] LABS: BASOPHILS # (AUTO) 0.1 K/UL (0.0-0.2); BASOPHILS % (AUTO) 1.2 % (0.0-2.0); EOSINOPHILS # (AUTO) 0.1 K/uL (0.0-0.7); EOSINOPHILS % (AUTO) 1.3 % (0.0-7.0); HEMATOCRIT 44.7 % (31.2-41.9); HEMOGLOBIN 14.8 g/dL (10.9-14.3); LYMPHOCYTES # (AUTO) 2.8 K/uL (0.8-4.8); LYMPHOCYTES % (AUTO) 36.2 % (20.5-51.5); MEAN CORPUSCULAR HEMOGLOBIN 34.1 uug (24.7-32.8); MEAN CORPUSCULAR HGB CONC 33 g/dL (32.3-35.6); MEAN CORPUSCULAR VOLUME 102.9 fL (75.5-95.3); MONOCYTES # (AUTO) 0.8 K/uL (0.1-1.30); MONOCYTES % (AUTO) 9.9 % (0.0-11.0); NEUTROPHILS # (AUTO) 3.9 K/uL (1.8-8.9); NEUTROPHILS % (AUTO) 51.4 % (38.5-71.5); PLATELET COUNT (AUTO) 210 K/uL (179-408); RED BLOOD CELL COUNT(AUTO) 4.35 MIL/uL (3.63-4.92); RED CELL DISTRIBUTION WIDTH 15.5 % (12.3-17.7); WHITE BLOOD COUNT (AUTO) 7.6 K/uL (3.8-11.8)
[2024-04-12 18:13] LABS: DIFFERENTIAL COMMENT 1
[2024-04-12 18:38] LABS: CALCIUM 9.3 mg/dL (8.5-10.1); CREATININE 0.6 mg/dL (0.6-1.3); POTASSIUM 3.5 mmol/L (3.5-5.1)
[2024-04-12] MEDS ORDERED: CETI-90 PO (18:41)
[2024-04-12 18:44] LABS: BILIRUBIN,TOTAL 0.6 mg/dL (0.2-1.0); TOTAL PROTEIN, SERUM 7.4 g/dL (6.4-8.2)
[2024-04-12] MEDS: TDAP DIPH,PERTUSS,TET VAC/PF 0.5 ML DISP.SYRIN IM ONE (18:45)
== END 2024-04-12 18:45 | disposition home or self-care (01) ==
LOC: ER 17:25
DX: S51.811A Laceration without foreign body of right forearm, initial encounter (principal); L29.9 Pruritus, unspecified; I11.0 Hypertensive heart disease with heart failure; I50.9 Heart failure, unspecified; E78.5 Hyperlipidemia, unspecified; G43.909 Migraine, unspecified, not intractable, without status migrainosus; Z79.899 Other long term (current) drug therapy; X58.XXXA Exposure to other specified factors, initial encounter; Y93.89 Activity, other specified; Y92.89 Other specified places as the place of occurrence of the external cause; Y99.8 Other external cause status
CPT/HCPCS: 36415; 85025; 85610; A4606; A4663

== ENCOUNTER 2024-04-17 17:08 | Emergency (ER) | payer OTHER, MEDICAID ==
[~2024-04-17] VITALS: Ht 162.6 cm; Wt 59.0 kg
[~2024-04-17 17:08] MED LIST changes: +CETI-90 PO
[2024-04-17 18:24] VITALS: BP 120/77; TEMP 208.8; O2SAT 98
== END 2024-04-17 18:24 | disposition home or self-care (01) ==
LOC: ER 17:12
DX: S51.811A Laceration without foreign body of right forearm, initial encounter (principal); I11.0 Hypertensive heart disease with heart failure; I50.9 Heart failure, unspecified; F32.A Depression, unspecified; Z79.899 Other long term (current) drug therapy; X58.XXXA Exposure to other specified factors, initial encounter; Y93.9 Activity, unspecified; Y92.89 Other specified places as the place of occurrence of the external cause; Y99.8 Other external cause status
CPT/HCPCS: A4606; A4663

== ENCOUNTER 2024-04-20 15:12 | Emergency (ER) | payer OTHER, MEDICAID ==
[~2024-04-20] VITALS: Ht 162.6 cm; Wt 59.0 kg
[2024-04-20 15:14] VITALS: O2SAT 97
[2024-04-20] MEDS ORDERED: NEOMY/BACITRA/POLYMYXIN B OINT UD PACKET TP ONE (15:35)
[2024-04-20] MEDS: NEOMY/BACITRA/POLYMYXIN B OINT UD PACKET TP ONE (15:41)
[2024-04-20 15:47] VITALS: BP 134/75; TEMP 97.3
== END 2024-04-20 15:48 | disposition home or self-care (01) ==
LOC: ER 15:12
DX: S51.811D Laceration without foreign body of right forearm, subsequent encounter (principal); G43.909 Migraine, unspecified, not intractable, without status migrainosus; I11.0 Hypertensive heart disease with heart failure; I50.9 Heart failure, unspecified; E78.5 Hyperlipidemia, unspecified; F32.A Depression, unspecified; Z79.899 Other long term (current) drug therapy; X58.XXXD Exposure to other specified factors, subsequent encounter
CPT/HCPCS: A4606; A4663

== ENCOUNTER 2024-10-04 18:25 | Emergency (ER) | payer OTHER, MEDICAID ==
[~2024-10-04] VITALS: Ht 147.3 cm; Wt 65.8 kg
[2024-10-04 19:08] LABS: BASOPHILS % (AUTO) 0.2 % (0.0-2.0); EOSINOPHILS % (AUTO) 0.1 % (0.0-7.0); HEMATOCRIT 41.8 % (31.2-41.9); HEMOGLOBIN 14.2 g/dL (10.9-14.3); LYMPHOCYTES # (AUTO) 1.6 K/uL (0.8-4.8); LYMPHOCYTES % (AUTO) 12.6 % (20.5-51.5); MEAN CORPUSCULAR HEMOGLOBIN 35.5 uug (24.7-32.8); MEAN CORPUSCULAR HGB CONC 34 g/dL (32.3-35.6); MEAN CORPUSCULAR VOLUME 104.2 fL (75.5-95.3); MONOCYTES % (AUTO) 7.9 % (0.0-11.0); NEUTROPHILS # (AUTO) 10.2 K/uL (1.8-8.9); NEUTROPHILS % (AUTO) 79.2 % (38.5-71.5); PLATELET COUNT (AUTO) 192 K/uL (179-408); RED BLOOD CELL COUNT(AUTO) 4.01 MIL/uL (3.63-4.92); RED CELL DISTRIBUTION WIDTH 14.5 % (12.3-17.7); WHITE BLOOD COUNT (AUTO) 12.9 K/uL (3.8-11.8)
[2024-10-04 19:11] LABS: DIFFERENTIAL COMMENT 1
[2024-10-04 19:17] LABS: CALCIUM 9.5 mg/dL (8.5-10.1); CARBON DIOXIDE 22 mmol/L (21-32); CHLORIDE 95 mmol/L (98-107); GLUCOSE 119 mg/dL (74-106); POTASSIUM 3.4 mmol/L (3.5-5.1); SODIUM SERUM 138 mmol/L (136-145); UREA NITROGEN, BLOOD 10 mg/dL (7-18)
[2024-10-04 19:29] LABS: NT-PRO BNP 539 pg/mL (0-125)
[2024-10-04] MEDS ORDERED: POTASSIUM CHLORIDE 20 MEQ TAB.PRT.SR ONE (19:48)
[2024-10-04] MEDS: POTASSIUM CHLORIDE 20 MEQ TAB.PRT.SR PO ONE (19:51)
[2024-10-05 02:11] VITALS: BP 118/67; O2SAT 99
== END 2024-10-05 02:12 | disposition left against medical advice (07) ==
LOC: ER 18:25
DX: R07.89 Other chest pain (principal); E78.5 Hyperlipidemia, unspecified; F32.A Depression, unspecified; F41.9 Anxiety disorder, unspecified; I11.0 Hypertensive heart disease with heart failure; I50.9 Heart failure, unspecified; Z79.899 Other long term (current) drug therapy; Z20.822 Contact with and (suspected) exposure to COVID-19
CPT/HCPCS: 36415; 71045; 83690; 84484; 85025; A4606; A4663